=== PATIENT | male | born 1950 | race Caucasian/White ===

== ENCOUNTER 2016-12-09 12:13 | Observation (INO) ==
--- NOTE | 2016-12-09 13:04 | EKG Report ---
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
[2016-12-09] MEDS ORDERED: ASPIRIN 325 MG TABLET PO STA (13:29)
[2016-12-09 13:42] LABS: Basophils % 1.3 % (0.0-0.8); Eosinophils % 1.3 % (0.00-10.9); Hematocrit 24.7 VOL% (42.0-52.0); Hemoglobin 8.6 GM/DL (14.0-18.0); Immature Granulocytes % 8.8 %; Immature Granulocytes Absolute 0.07 #; Lymphocytes # 0.4 10*3/uL (1.4-4.0); Lymphocytes % 48.8 % (21.2-54.2); Mean Corpuscular HGB Conc 34.8 GM/DL (32-36); Mean Corpuscular Hemoglobin 32 PG (27-34); Mean Corpuscular Volume 90.8 FL (87-102); Mean Platelet Volume 11.4 FL (9.6-12.0); Monocytes # 0.1 10*3/uL (0.11-0.8); Monocytes % 13.8 % (1.7-12.7); Neutrophils # 0.2 10*3/uL (1.4-7.4); Platelet Count 90 T/CUMM (130-400); Red Blood Count 2.72 MC/CUMM (3.8-5.5); Red Cell Distribution Width 13.5 % (9.3-17.3)
[2016-12-09 13:44] LABS: White Blood Count 0.8 T/CUMM (4-12)
--- NOTE | 2016-12-09 13:49 | XRay Report ---
XR chest 1V portable Indication: Chest pain Comparison: 11 May 2016 Findings: The heart and mediastinum are stable in size and configuration with cardiac surgery changes. The left internal jugular catheters unchanged in position. Pulmonary vascularity is normal in caliber. No lung infiltrates, effusions, pneumothorax or other abnormality is demonstrated. Impression: No acute cardiopulmonary disease. PROCEDURE INTERPRETED AT [facility] DEPARTMENT OF RADIOLOGY Final Report Signed by: Dr. Danish Gray
[2016-12-09 13:53] LABS: PT Patient Result 10.7 SECS
[2016-12-09] MEDS ORDERED: ASPIRIN 325 MG TABLET ONE (13:55)
[2016-12-09 14:19] LABS: Albumin 3.7 G/DL (3.4-5.0); Bilirubin,Total 0.5 MG/DL (0.2-1.0); Calcium 9.1 MG/DL (8.5-10.1); Osmolality,Calculated 295.7 MOS/KG (273-304); Potassium 5.2 MMOL/L (3.5-5.1); Total Protein 6.5 G/DL (6.4-8.3)
[2016-12-09 14:48] LABS: Hypochromasia 2+; Lymphocytes 30 % (20-55); Microcytosis 1+; Platelet Estimate Decreased; Segmented Neutrophils 60 % (50-85); Total Cells Counted 100
--- NOTE | 2016-12-09 14:59 | Emergency Department Note ---
Gaurav Cade Brooke, am scribing for, and in the presence of, Stiven Chavez MD 13:30. Kathy Cade Phillip K, MD, personally performed the services described in this documentation, ascribed by Jessica Nolasco in my presence, and it is both accurate and complete 459 . Arrival - Arrival Chief Complaint: Chest Pain Stated Complaint: chest pain ED Nursing Triage Note: PT C/O SUDDEN SQUEEZING MIDSTERNAL CHEST PAIN THAT RADIATED THROUGH TO HIS BACK, ONSET AT 1000 THIS AM, LASTING 10-15 MINUTES. + HEADACHE. DENIES SOB/N/V OR DIAPHORESIS. LAST CHEMO FOR RECTAL CANCER WAS 10 DAYS AGO Mode of Arrival: Ambulatory Limitations: No Limitations Source: Patient, Significant other, RN Notes Reviewed Time Seen by Provider: 12/09/16 13:09 - History of Present Illness HPI Narrative: Patient is a 66 year old male who presents to the ED with c/o chest pain. Patient says, around 0930 this morning, he had sudden onset chest pain that lasted about 15 minutes. He describes the pain as pressure. He says the pain was located in the center of his chest and says it went through to his back. Patient denies any radiation of the chest pain to the neck, shoulder, or arm. The pain was not worsened by movements or deep breaths. He denies having any shortness of breath, nausea, vomiting, or diaphoresis with the pain. Patient says he has not had anymore pain today. He had bypass surgery in 2014 and has not had a heart cath since. Patient says todays pain did not feel like the pain before the bypass. His Rides Attendant is Dr. Baudilio Biswas([facility]). Patient has also had a "low grade" fever for the past couple of days but he denies having a cough. Patient also has PMHx of HTN, CVA, IDDM, and rectal and colon cancer. He receives chemotherapy, every three weeks, and his last treatment was on 2016. Patient's Oncologist is Dr. Torres. He has not had an ASA today. Consistency: now resolved Allergies/Adverse Reactions: Allergies Allergy/AdvReac Type Severity Reaction Status Date / Time Penicillins Allergy Unknown Unknown/Unable Verified 12/09/16 12:26 to obtain Home Medications: Home Medications Medication Instructions Recorded Confirmed Type Aspirin [Ecotrin] 81 mg PO BEDTIME 11/20/15 12/09/16 History Glyburide/Metformin HCl 2 each PO BID 03/06/16 12/09/16 History [Glyburide-Metformin 2.5-500 mg] Isosorbide Dinitrate 20 mg PO BID 03/06/16 12/09/16 History Lisinopril 40 mg PO QPM PRN 03/06/16 12/09/16 History Metoprolol Succinate 50 mg PO QAM 03/06/16 12/09/16 History Insulin Detemir [Levemir] 15 units SUBCUT BEDTIME 03/09/16 12/09/16 History Nitroglycerin Sl Tab [Nitrostat] 0.4 mg SL DIRECTED 03/09/16 12/09/16 History Pantoprazole Tab [Protonix Tab] 40 mg PO DAILY PRN 12/09/16 12/09/16 History Promethazine Tab [Phenergan Tab] 25 mg PO Q6H PRN 12/09/16 12/09/16 History hydroCHLOROthiazide 25 mg PO BEDTIME 12/09/16 12/09/16 History [Hydrochlorothiazide] Review of System - Review of System 12 point system: reviewed and no additional remarkable complaints except as stated - Review of System Constitutional: Present: fever (low grade). Absent: diaphoresis Respiratory: Absent: cough, respiratory distress Cardiovascular: Present: chest pain Gastrointestinal: Absent: nausea, vomiting Skin: Absent: rash Medical,Surgical,& Family Hx - Medical History Cardio: History of: Hypertension, Cardiovascular Problems (Triple bypass surgery in 2003) Neurology: History of: Cerebrovascular Accident Endocrine: History of: Diabetes Mellitus (IDDM) Gastrointestinal: History of: Gastrointestinal Cancer (rectal cancer) Other: History of: Cancer (COLON RECTAL) - Surgical History Cardiac Surgeries: Sugical HX of: Cardiac Catheterization, Cardiac Surgery ( triple bypass surgery in 2003) Neurologic Surgeries: Patient denies: Neurologic Surgery HEENT Surgeries: Patient denies: Tonsilectomy & Adenoidectomy Abdominal Surgeries: Surgical HX of: Abdominal Surgery (colostomy for rectal cancer in 2003) Reproductive Surgeries: Patient denies;: Genitourinary Surgery - Family History Family History: Reports;: Family Cancer (Lung- mother prostate- father), Family Diabetes (Father), Family Heart Disease (Father), Family Hypertension (Father) - Social History Smoking Status: Light tobacco smoker Frequency of Alcohol Use: None Type of Drug Use: None Exam Vital Signs: Vital Signs Temperature 98.1 F 12/09/16 14:02 Pulse Rate 68 12/09/16 14:02 Respiratory Rate 18 12/09/16 14:02 Blood Pressure 104/49 12/09/16 14:02 O2 Sat by Pulse Oximetry 100 12/09/16 13:39 - General General appearance: alert, in no apparent distress - Head Head exam: Present: atraumatic, normocephalic - Eye Eye exam: Present: other (pale conjuntiva) - ENT ENT exam: Present: other (pale mucous membranes) - Neck Neck exam: Present: normal inspection - Chest Chest inspection: Present: normal inspection, symmetric chest wall rise. Absent : tenderness - Respiratory Respiratory exam: Present: normal lung sounds bilaterally - Cardiovascular Cardiovascular exam: Present: regular rate, normal rhythm, normal heart sounds - Abdominal Exam Abdominal exam: Present: soft, normal bowel sounds. Absent: distention, tenderness - Extremities Exam Extremities exam: Present: normal inspection - Back Exam Back exam: Present: normal inspection - Neurological Exam Neurological exam: Present: alert, oriented X3 - Psychiatric Psychiatric exam: Present: normal affect, normal mood - Skin Skin exam: Present: warm, dry, intact, normal color Course Course Narrative: Patient discussed with dr. torres who will admit for transfusion and serial isoenzymes. Results - Labs CBC & BMP: 12/09/16 13:39 12/09/16 13:39 Lab Results: I have reviewed the patients labs Labs: Laboratory Tests 12/09/16 13:39 WBC 0.8 L* RBC 2.72 L Hgb 8.6 L Hct 24.7 L MCV 90.8 MCH 32 MCHC 34.8 RDW 13.5 Plt Count 90 L MPV 11.4 Neut % (Auto) 26.0 L Lymph % (Auto) 48.8 [place] % (Auto) 13.8 H Eos % (Auto) 1.3 Baso % (Auto) 1.3 H Neut # (Auto) 0.2 L Lymph # (Auto) 0.4 L [place] # (Auto) 0.1 L Eos # (Auto) 0.0 Baso # (Auto) 0.0 Total Counted Pending Immature Gran % 8.8 Nucleated RBC % 0.0 Immature Gran # 0.07 Nucleated RBCs # 0.00 Immature Plt Fraction 4.2 Laboratory Tests 12/09/16 13:39 INR 1.0 PT Patient/Control Mix 10.7 Laboratory Tests 12/09/16 13:39 Sodium 138 Potassium 5.2 H Chloride 109 H Carbon Dioxide 21 Anion Gap 13.2 BUN 48 H Creatinine 2.90 H GFR Calculation 24 BUN/Creatinine Ratio 16.00 Glucose 234 H Calculated Osmolality 295.7 Calcium 9.1 Magnesium 2.0 Total Bilirubin 0.50 AST 5 ALT 11 L Alkaline Phosphatase 116 Total Protein 6.5 Albumin 3.7 Globulin 2.8 Albumin/Globulin Ratio 1.3 Laboratory Tests 12/09/16 13:39 Troponin I < 0.015 Laboratory Tests 12/09/16 13:39 Total Counted 100 Segmented Neutrophils 60 Lymphocytes 30 Monocytes 10 Platelet Estimate Decreased Hypochromasia 2+ Microcytosis 1+ - EKG EKG results: interpreted by ERMD, WNL, sinus rhythm - Diagnostic Findings Procedure: Chest x-ray: report reviewed by me (No acute cardiopulmonary disease. ) Disposition Clinical Impression: Chest pain, Rectal carcinoma, Leukopenia due to antineoplastic chemotherapy, Anemia Case discussed with: patient, patient's family Disposition: Still a Patient Condition: Guarded
[2016-12-09] MEDS ORDERED: ALUMINUM/MAGNES/SIMETH MAX STR 30 ML UDCUP PO PRN (15:09)
[2016-12-09] MEDS ORDERED: guaiFENesin 200 MG/10 ML UDCUP PO PRN (15:09)
[2016-12-09] MEDS ORDERED: PROMETHAZINE INJ 25 MG in SODIUM CHLORIDE 0.9% 50 ML IV PRN (15:09)
[2016-12-09] MEDS ORDERED: LOPERAMIDE 2 MG CAPSULE PO PRN ×2 (15:09)
[2016-12-09] MEDS ORDERED: ACETAMINOPHEN 325 MG TABLET PO PRN (15:09)
[2016-12-09] MEDS ORDERED: ALPRAZolam 0.25 MG TABLET PO PRN (15:09)
[2016-12-09] MEDS ORDERED: LACTULOSE 20 GM/30 ML UDCUP PO PRN (15:09)
[2016-12-09] MEDS ORDERED: TEMAZEPAM 7.5 MG CAPSULE PO PRN (15:09)
[2016-12-09] MEDS ORDERED: diphenhydrAMINE CAP 25 MG CAPSULE PO PRN (15:09)
[2016-12-09] MEDS ORDERED: MAGNESIUM HYDROXIDE SUSP 30 ML UDCUP PO PRN (15:09)
[2016-12-09] MEDS ORDERED: MYLANTA/LIDO VISC 2:1 300 ML BOTTLE SWISH/SWAL PRN (15:09)
[2016-12-09] MEDS ORDERED: BENZTROPINE 2 MG/2 ML AMP IV PRN (15:09)
[2016-12-09] MEDS ORDERED: chlorproMAZINE 25 MG TABLET PO PRN (15:09)
[2016-12-09] MEDS ORDERED: ONDANSETRON 4 MG/2 ML VIAL IV PRN (15:09)
[2016-12-09] MEDS ORDERED: MYLANTA/LIDO VISC 2:1 300 ML BOTTLE SWISH/SPIT PRN (15:09)
[2016-12-09] MEDS ORDERED: traMADol 50 MG TABLET PO PRN (15:09)
[2016-12-09] MEDS ORDERED: SODIUM CHLORIDE 0.9% 1,000 ML IV SCH (15:30)
[2016-12-09 15:36] LABS: Uric Acid 10.2 MG/DL (3.5-7.2)
[2016-12-09] MEDS ORDERED: SODIUM CHLORIDE 0.9% 250 ML IV PRN ×2 (16:08→17:03)
--- NOTE | 2016-12-09 16:46 | EKG Report ---
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
[2016-12-09] MEDS ORDERED: DEXTROSE 50% 25 GM/50 ML VIAL IV PRN (16:48)
[2016-12-09] MEDS ORDERED: GLUCAGON 1 MG VIAL IM PRN (16:48)
[2016-12-09] MEDS ORDERED: DEXTROSE 50% 25 GM/50 ML SYRINGE IV PRN (17:00)
[2016-12-09] MEDS ORDERED: PROMETHAZINE 25 MG TABLET PO PRN (17:38)
[2016-12-09] MEDS ORDERED: PANTOPRAZOLE 40 MG TABLET PO PRN (17:39)
[2016-12-09] MEDS ORDERED: LISINOPRIL 20 MG TABLET PO PRN (17:40)
[2016-12-09] MEDS ORDERED: NITROGLYCERIN SL 0.4 MG TABLET SL PRN (17:42)
[2016-12-09 17:46] LABS: Apearance,Urine CLEAR (Clear); Bilirubin,Urine Negative (Negative); Blood, Urine Negative (Negative); Glucose,Urine (UA) >=500 mg/dL (Negative); Ketones,Urine Negative (Negative); Mucus,Urine Occasional /LPF (Occasional); Nitrite,Urine Negative (Negative); Protein,Urine 30 MG/DL; RBC,Urine <1 /HPF (0-4); Squamous Epithelial Cell,Urine Occasional /HPF (0-10); Urine Color Yellow (Yellow); Urine Specific Gravity 1.012 (1.001-1.035); Urine Urobilinogen < 2.0 EU/DL (0.2-1.0); WBC,Urine 1 /HPF (0-6)
[2016-12-09] MEDS: FILGRASTIM-SNDZ 300 MCG/0.5 ML SYRINGE SUBCUT SCH (18:13)
[2016-12-09] MEDS: cefTRIAXone 1,000 MG in SODIUM CHLORIDE 0.9% 100 ML IV SCH (18:13)
[2016-12-09] MEDS: ISOSORBIDE DINITRATE 20 MG TABLET PO SCH (21:14)
[2016-12-09] MEDS: hydroCHLOROthiazide 25 MG TABLET PO SCH (21:14)
[2016-12-09] MEDS: ASPIRIN EC 81 MG TABLET PO SCH (21:15)
[2016-12-09] MEDS: INSULIN GLARGINE 100 UNIT/ML SUBCUT SCH (22:15)
[2016-12-10 05:34] LABS: Basophils % 0.9 % (0.0-0.8); Eosinophils % 0.9 % (0.00-10.9); Hematocrit 28.4 VOL% (42.0-52.0); Hemoglobin 9.8 GM/DL (14.0-18.0); Immature Granulocytes % 0.9 %; Immature Granulocytes Absolute 0.01 #; Lymphocytes # 0.5 10*3/uL (1.4-4.0); Lymphocytes % 41.1 % (21.2-54.2); Mean Corpuscular HGB Conc 34.5 GM/DL (32-36); Mean Corpuscular Hemoglobin 31 PG (27-34); Mean Corpuscular Volume 89.3 FL (87-102); Mean Platelet Volume 12.1 FL (9.6-12.0); Monocytes # 0.1 10*3/uL (0.11-0.8); Monocytes % 11.6 % (1.7-12.7); Neutrophils # 0.5 10*3/uL (1.4-7.4); Neutrophils % 44.6 % (38.7-73.9); Red Blood Count 3.18 MC/CUMM (3.8-5.5); Red Cell Distribution Width 14.7 % (9.3-17.3); White Blood Count 1.1 T/CUMM (4-12)
[2016-12-10 05:37] LABS: Platelet Count 78 T/CUMM (130-400)
[2016-12-10 05:46] LABS: Calcium 8.4 MG/DL (8.5-10.1); Osmolality,Calculated 304.3 MOS/KG (273-304); Potassium 4.9 MMOL/L (3.5-5.1)
[2016-12-10 06:31] LABS: Band Neutrophils 10 % (0-10); Hypochromasia 2+; Lymphocytes 34 % (20-55); Platelet Estimate Decreased; Polychromasia Slight; Segmented Neutrophils 40 % (50-85); Total Cells Counted 100
--- NOTE | 2016-12-10 08:50 | Oncology History&Physical ---
Assessment and Plan (1) Rectal carcinoma Status: Acute Assessment and plan: Appropriate rise in hematocrit posttransfusion is noted today. We are giving Neulasta and monitoring for infection and I have discussed with he and his that discharge would be appropriate if we can confirm an upward trend in the white blood cell count. I do not think there are any acute cardiac issues. Current Visit: Yes History of Present Illness Chief complaint: Chest pain History of present illness: Mr. Wynn is a 66 year old male With rectal adenocarcinoma original diagnosis approximately 2 years ago. We are now treating the patient with chemotherapy only for a local recurrence. He has required a dose reduction and other dosing modifications due to cytopenias. He does have a history of radiotherapy to the pelvis. He was treated last week I believe with hugh bateman and was given Neulasta. His history is also notable for coronary bypass precipitated by postoperative [place]. This was after rectal resection and was at [facility]. He did follow up with his burn nurse there a few months ago after having chest pain related to bevacizumab exposure. He has not had any type of repeat perfusion imaging. The patient was at rest yesterday when he developed some chest discomfort this did radiate to his back. Troponins have been negative overnight. The case was discussed with the ER physician and I felt that the low hematocrit was likely the precipitating cause. He also has mild thrombocytopenia and moderate neutropenia. Possibly some subjective fever also noted at home Home Medications Medication Instructions Recorded Confirmed Type Aspirin [Ecotrin] 81 mg PO BEDTIME 11/20/15 12/09/16 History Glyburide/Metformin HCl 2 each PO BID 03/06/16 12/09/16 History [Glyburide-Metformin 2.5-500 mg] Isosorbide Dinitrate 20 mg PO BID 03/06/16 12/09/16 History Lisinopril 40 mg PO QPM PRN 03/06/16 12/09/16 History Metoprolol Succinate 50 mg PO QAM 03/06/16 12/09/16 History Insulin Detemir [Levemir] 15 units SUBCUT BEDTIME 03/09/16 12/09/16 History Nitroglycerin Sl Tab [Nitrostat] 0.4 mg SL DIRECTED 03/09/16 12/09/16 History Pantoprazole Tab [Protonix Tab] 40 mg PO DAILY PRN 12/09/16 12/09/16 History Promethazine Tab [Phenergan Tab] 25 mg PO Q6H PRN 12/09/16 12/09/16 History hydroCHLOROthiazide 25 mg PO BEDTIME 12/09/16 12/09/16 History [Hydrochlorothiazide] Allergies Allergy/AdvReac Type Severity Reaction Status Date / Time Penicillins Allergy Unknown Unknown/Unable Verified 12/09/16 12:26 to obtain Medical,Surgical,& Family Hx - Medical History Cardio: History of: Hypertension, Cardiovascular Problems (Triple bypass surgery in 2003) Neurology: History of: Cerebrovascular Accident Endocrine: History of: Diabetes Mellitus (IDDM) Gastrointestinal: History of: Gastrointestinal Cancer (rectal cancer) Other: History of: Cancer (COLON RECTAL) - Surgical History Cardiac Surgeries: Sugical HX of: Cardiac Catheterization, Cardiac Surgery ( triple bypass surgery in 2003) Neurologic Surgeries: Patient denies: Neurologic Surgery HEENT Surgeries: Patient denies: Tonsilectomy & Adenoidectomy Abdominal Surgeries: Surgical HX of: Abdominal Surgery (colostomy for rectal cancer in 2003) Reproductive Surgeries: Patient denies;: Genitourinary Surgery - Family History Family History: Reports;: Family Cancer (Lung- mother prostate- father), Family Diabetes (Father), Family Heart Disease (Father), Family Hypertension (Father) - Social History Smoking Status: Light tobacco smoker Frequency of Alcohol Use: None Type of Drug Use: None - Constitutional Constitutional: Present: fatigue, malaise, weakness, weight loss - EENT Ears: Absent: ear discharge, ear pain, tinnitus Nose, mouth and throat: Absent: neck mass, neck pain, odynophagia, sore throat - Cardiovascular Cardiovascular ROS IM: Absent: edema - Gastrointestinal Gastrointestinal: Absent: hematemesis - Hematologic/Lymphatic Hematologic/Lymphatic: Absent: easy bruising, lymphadenopathy Exam - Constitutional Vitals: Period Temp Pulse Resp BP Sys/[place] Pulse Ox Last 24 Hr 97.6 F-98.5 F 50-68 11-20 104-178/49-75 97-100 General appearance: no acute distress, under weight - Head Head Exam: Present: normocephalic - ENT ENT exam: Present: normal external ear exam - Neck Neck exam: Present: normal inspection. Absent: lymphadenopathy - Respiratory Respiratory exam: Present: CTAB. Absent: accessory muscle use - Cardiovascular Cardiovascular exam: Present: RRR. Absent: systolic murmur - GI/Abdominal GI/Abdominal exam: Absent: ascites, distended, firm, guarding - Back Exam Back exam general: Present: normal inspection. Absent: CVA tenderness (L) - Neurological Exam Neurological exam: Present: alert, oriented X3 - Psychiatric Psychiatric exam: Present: normal affect, normal mood - Skin Skin exam: Present: warm, dry, other (Multiple keratotic lesions over sun exposed areas) Results - Labs CBC & BMP: 12/10/16 04:46 12/10/16 04:46
[2016-12-10] MEDS ORDERED: PROMETHAZINE 25 MG TABLET PO PRN (08:52)
[2016-12-10] MEDS ORDERED: PANTOPRAZOLE 40 MG TABLET PO PRN (08:52)
[2016-12-10] MEDS: ISOSORBIDE DINITRATE 20 MG TABLET PO SCH ×2 (08:53→21:13)
[2016-12-10] MEDS: METOPROLOL SUCCINATE XL 50 MG TABLET PO SCH (08:54)
[2016-12-10] MEDS: FILGRASTIM-SNDZ 300 MCG/0.5 ML SYRINGE SUBCUT SCH (08:55)
[2016-12-10] MEDS: INSULIN REGULAR 100 UNIT/ML SUBCUT SCH ×2 (08:56→17:00)
[2016-12-10] MEDS ORDERED: ISOSORBIDE DINITRATE 20 MG TABLET PO SCH (09:00)
[2016-12-10] MEDS ORDERED: NITROGLYCERIN SL 0.4 MG TABLET SL PRN (09:00)
[2016-12-10] MEDS ORDERED: METOPROLOL SUCCINATE XL 50 MG TABLET PO SCH (09:00)
--- NOTE | 2016-12-10 16:36 | Ultrasound Report ---
Exam: US renal Bilateral Date: 12/10/2016 3:29 PM Comparison: None Indication: Elevated creatinine Technique:[Multiple transabdominal real-time scans were obtained of the kidneys. Ultrasound images were captured and stored.] Findings: Right kidney measures 111 x 49 x 45 mm. Left kidney measures 100 x 55 x 53 mm. Moderate left hydronephrosis with no definite masses. Limited scans were obtained of the urinary bladder which has an irregular contour with wall thickening. The bladder is not significantly distended. Impression: Moderate left hydronephrosis. Nondistended urinary bladder which has an abnormal appearance with irregular contour and wall thickening. Limited evaluation of the urinary bladder. PROCEDURE INTERPRETED AT [facility] DEPARTMENT OF RADIOLOGY Final Report Signed by: Dr. Amy Snyder
[2016-12-10] MEDS: cefTRIAXone 1,000 MG in SODIUM CHLORIDE 0.9% 100 ML IV SCH (17:00)
[2016-12-10] MEDS ORDERED: HEPARIN LOCK FLUSH 500 UNIT/5 ML SYRINGE IV ONE (17:55)
[2016-12-10] MEDS: HEPARIN LOCK FLUSH 500 UNIT/5 ML SYRINGE IV PRN (19:05)
[2016-12-10] MEDS ORDERED: INSULIN GLARGINE 100 UNIT/ML SUBCUT SCH (21:00)
[2016-12-10] MEDS ORDERED: ASPIRIN EC 81 MG TABLET PO SCH (21:00)
[2016-12-10] MEDS: hydroCHLOROthiazide 25 MG TABLET PO SCH (21:13)
[2016-12-10] MEDS: ASPIRIN EC 81 MG TABLET PO SCH (21:14)
[2016-12-10] MEDS: INSULIN GLARGINE 100 UNIT/ML SUBCUT SCH (21:17)
[2016-12-11 06:11] LABS: Basophils % 0.6 % (0.0-0.8); Eosinophils % 0.6 % (0.00-10.9); Hematocrit 27.6 VOL% (42.0-52.0); Hemoglobin 9.9 GM/DL (14.0-18.0); Immature Granulocytes Absolute 0.21 #; Lymphocytes # 0.7 10*3/uL (1.4-4.0); Lymphocytes % 18.8 % (21.2-54.2); Mean Corpuscular HGB Conc 35.9 GM/DL (32-36); Mean Corpuscular Hemoglobin 31 PG (27-34); Mean Corpuscular Volume 86.8 FL (87-102); Mean Platelet Volume 12.2 FL (9.6-12.0); Monocytes # 0.5 10*3/uL (0.11-0.8); Monocytes % 13.1 % (1.7-12.7); NRBC # 0.02 10*3/uL; Neutrophils # 2.1 10*3/uL (1.4-7.4); Neutrophils % 60.9 % (38.7-73.9); Platelet Count 78 T/CUMM (130-400); Red Blood Count 3.18 MC/CUMM (3.8-5.5); Red Cell Distribution Width 14.9 % (9.3-17.3); White Blood Count 3.5 T/CUMM (4-12)
[2016-12-11 06:42] LABS: Calcium 9.3 MG/DL (8.5-10.1); Osmolality,Calculated 289.3 MOS/KG (273-304); Potassium 4.4 MMOL/L (3.5-5.1)
[2016-12-11 07:11] LABS: Macrocytosis Slight; Polychromasia Slight
[2016-12-11] MEDS: INSULIN REGULAR 100 UNIT/ML SUBCUT SCH (08:04)
[2016-12-11] MEDS: FILGRASTIM-SNDZ 300 MCG/0.5 ML SYRINGE SUBCUT SCH (08:52)
[2016-12-11] MEDS: METOPROLOL SUCCINATE XL 50 MG TABLET PO SCH (08:53)
[2016-12-11] MEDS: ISOSORBIDE DINITRATE 20 MG TABLET PO SCH (08:53)
[2016-12-11 08:57] VITALS: BP 152/65
--- NOTE | 2016-12-11 09:41 | Discharge Summary ---
Hospital Course - Hospital Course Hospital Course: Patient with recurrent rectal cancer admitted with mild episode of atypical chest pain. This is in the setting of known coronary disease with coronary bypass surgery proximally 2 years prior. Troponins have been negative. His symptoms were possibly related to chemotherapy induced anemia and he did receive red blood cell transfusion. He was neutropenic and this is improved with Neupogen. He is afebrile and blood cultures are negative. He is nontoxic appearing eating well and ambulating without difficulty. Stable for discharge home and will resume prior medications and follow-up schedule Diagnosis - Discharge Diagnosis (1) Rectal carcinoma Status: Acute Discharge Plan - Discharge Medications Continue Aspirin [Ecotrin] 81 mg PO BEDTIME Metoprolol Succinate 50 mg PO QAM Isosorbide Dinitrate 20 mg PO BID Glyburide/Metformin HCl [Glyburide-Metformin 2.5-500 mg] 2 each PO BID Lisinopril 40 mg PO QPM PRN PRN Reason: Blood Pressure-Increased Nitroglycerin Sl Tab [Nitrostat] 0.4 mg SL DIRECTED Insulin Detemir [Levemir] 15 units SUBCUT BEDTIME hydroCHLOROthiazide [Hydrochlorothiazide] 25 mg PO BEDTIME Pantoprazole Tab [Protonix Tab] 40 mg PO DAILY PRN PRN Reason: GI UPSET Promethazine Tab [Phenergan Tab] 25 mg PO Q6H PRN PRN Reason: Nausea/Vomiting - Follow Up or Referral - Forms/Instructions Exam - Constitutional Vitals: Period Temp Pulse Resp BP Sys/[place] Pulse Ox Last 24 Hr 97.3 F-98.4 F 52-61 18-20 130-201/60-82 94-99 Discharge Results Procedures and tests throughout hospitalization: Pending Orders 12/09/16 17:00 Blood Culture Stat 12/09/16 17:52 Blood Culture Stat 12/12/16 04:00 BMP [Basic Metabolic Panel] IN AM CBC [Comp Blood Count Auto Diff] IN AM 12/13/16 04:00 BMP [Basic Metabolic Panel] IN AM CBC [Comp Blood Count Auto Diff] IN AM 12/14/16 04:00 BMP [Basic Metabolic Panel] IN AM CBC [Comp Blood Count Auto Diff] IN AM 12/15/16 04:00 BMP [Basic Metabolic Panel] IN AM CBC [Comp Blood Count Auto Diff] IN AM Labs on day of discharge: Labs from last 24 hours 12/11/16 12/11/16 12/11/16 07:50 05:09 05:09 WBC 3.5 L D RBC 3.18 L Hgb 9.9 L Hct 27.6 L MCV 86.8 L MCH 31 MCHC 35.9 RDW 14.9 Plt Count 78 L MPV 12.2 H Neut % (Auto) 60.9 Lymph % (Auto) 18.8 L [place] % (Auto) 13.1 H Eos % (Auto) 0.6 Baso % (Auto) 0.6 Neut # (Auto) 2.1 Lymph # (Auto) 0.7 L [place] # (Auto) 0.5 Eos # (Auto) 0.0 Baso # (Auto) 0.0 Immature Gran % 6.0 Nucleated RBC % 0.6 Immature Gran # 0.21 Nucleated RBCs # 0.02 Immature Plt Fraction 0.0 Polychromasia Slight Macrocytosis Slight Sodium 141 Potassium 4.4 Chloride 110 H Carbon Dioxide 23 Anion Gap 12.4 BUN 37 H Creatinine 2.20 H GFR Calculation 32 BUN/Creatinine Ratio 16.00 Glucose 105 POC Glucose 102 Calculated Osmolality 289.3 Calcium 9.3 12/10/16 12/10/16 12/10/16 21:16 15:40 12:06 WBC RBC Hgb Hct MCV MCH MCHC RDW Plt Count MPV Neut % (Auto) Lymph % (Auto) [place] % (Auto) Eos % (Auto) Baso % (Auto) Neut # (Auto) Lymph # (Auto) [place] # (Auto) Eos # (Auto) Baso # (Auto) Immature Gran % Nucleated RBC % Immature Gran # Nucleated RBCs # Immature Plt Fraction Polychromasia Macrocytosis Sodium Potassium Chloride Carbon Dioxide Anion Gap BUN Creatinine GFR Calculation BUN/Creatinine Ratio Glucose POC Glucose 255 H 308 H 321 H Calculated Osmolality Calcium Preliminary micro results at discharge 12/09/16 17:52 Blood Culture - Preliminary Blood - Mediport No growth at 1 day 12/09/16 17:00 Blood Culture - Preliminary Blood No growth at 1 day DS: Provider Date of admission: 12/09/16 15:08 Primary care physician: Willie Caldwell Attending physician on admission: Anthony Acuña MD Consults: 12/09/16 16:32 Consult to Dietitian [CONS] Routine Reason for Dietitian: Other Consult Comment: admission assessment Discharging clinician: Anthony Acuña MD
[2016-12-11] MEDS: HEPARIN LOCK FLUSH 500 UNIT/5 ML SYRINGE IV PRN (10:45)
== END 2016-12-11 10:45 | disposition home or self-care (01) ==
LOC: N.ED 12:13 → N.EDINP 12:13 → N.4E 16:00
PROVIDERS: ADMIT Specialist; ATTEND Specialist